=== PATIENT | male | born 1995 | race Caucasian/White ===

== ENCOUNTER 2017-09-17 07:44 | Emergency (ER) | payer MEDICAID, OTHER ==
[~2017-09-17] VITALS: Ht 175.3 cm; Wt 72.6 kg
[2017-09-17 07:45] VITALS: BP 131/85
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
--- NOTE | 2017-09-17 08:10 | NUR ---
DR ALTAMIRANO FINISHED EVALUATING PT AT BEDSIDE
[2017-09-17] MEDS ORDERED: KETOROLAC 60 MG/2 ML VIAL IM ONE (08:15)
[2017-09-17] MEDS ORDERED: BACITRACIN OINT 500 UNITS/GM PKT TP ONE (08:15)
--- NOTE | 2017-09-17 08:20 | NUR ---
XRAY AT BEDSIDE
[2017-09-17 11:30] VITALS: BP 127/74
--- NOTE | 2017-09-17 11:30 | NUR ---
Patient discharged with v/s stable. Written and verbal after care instructions given and explained. Patient alert, oriented and verbalized understanding of instructions. Ambulatory with steady gait. All questions addressed prior to discharge. ID band removed. Patient advised to follow up with PMD. Rx of Motrin 800mg and Freeman given. Patient educated on indication of medication including possible reaction and side effects. Opportunity to ask questions provided and answered.
== END 2017-09-17 11:30 | disposition home or self-care (01) ==
LOC: MED 07:44
DX: M79.641 Pain in right hand (principal); R68.84 Jaw pain; Z90.89 Acquired absence of other organs; Z88.5 Allergy status to narcotic agent; F17.210 Nicotine dependence, cigarettes, uncomplicated; Y04.2XXA Assault by strike against or bumped into by another person, initial encounter; Y93.89 Activity, other specified; Y92.89 Other specified places as the place of occurrence of the external cause; Y99.8 Other external cause status
CPT/HCPCS: 73130; 96372; 99284; J1885; Q0092